=== PATIENT | male | born 1995 | race Two or more races ===

== ENCOUNTER 2024-08-24 14:21 | Emergency (ER) | payer OTHER ==
[~2024-08-24] VITALS: Ht 175.3 cm; Wt 217.7 kg
[2024-08-24 18:29] LABS: BASO % 0.4 % (0.1-1.2); EOS # 0.41 (0.04-0.54); HEMATOCRIT 44.8 % (40.1-51.0); HEMOGLOBIN 13.5 g/dL (13.7-17.5); LYMPH % 23.5 % (19.3-53.1); MEAN CORPUSCULAR HEMOGLOBIN 21.8 pg (25.6-32.2); MONO # 0.89 (0.24-0.82); MONO % 6.5 % (4.7-12.5); NEUT % 66.3 % (34.0-71.1); PLATELET COUNT 338 K/uL (163-369); RED BLOOD COUNT 6.18 M/uL (4.63-6.08); RED CELL DISTRIBUTION WIDTH 17.4 % (11.6-14.4)
[2024-08-24 19:30] LABS: INFLUENZA A AG NEGATIVE (NEGATIVE)
[2024-08-24 19:31] LABS: COVID-19 AG NEGATIVE (NEGATIVE)
[2024-08-24] MEDS ORDERED: ACETAMINOPHEN500 M1 PO (21:02)
[2024-08-24] MEDS ORDERED: AMOX-CLAV 875-1 EACH PO (21:02)
[2024-08-24] MEDS ORDERED: GILTUSS COUGH-118 M1 PO (21:02)
[2024-08-24] MEDS ORDERED: MOMETASONE FURO17 GM NASAL (21:06)
== END 2024-08-24 22:04 | disposition home or self-care (01) ==
LOC: ER 14:21
PROVIDERS: Preventive Medicine Public Health & General Preventive Medicine
DX: J06.9 Acute upper respiratory infection, unspecified (principal); Z20.822 Contact with and (suspected) exposure to COVID-19; Z88.8 Allergy status to other drugs, medicaments and biological substances; Z91.013 Allergy to seafood

== ENCOUNTER 2024-10-25 10:36 | Emergency (ER) | payer OTHER ==
[~2024-10-25] VITALS: Ht 175.3 cm; Wt 181.4 kg
[~2024-10-25 10:36] MED LIST: ACETAMINOPHEN500 M1 PO; AMOX-CLAV 875-1 EACH PO; GILTUSS COUGH-118 M1 PO; MOMETASONE FURO17 GM NASAL
[2024-10-25] MEDS ORDERED: IBUPROFEN800 MG PO (14:02)
[2024-10-25] MEDS ORDERED: PEPCID AC20 MG PO (14:02)
[2024-10-25] MEDS ORDERED: CEFTRIAXONE SODIUM 1,000 MG VIAL IM ONE (14:15)
== END 2024-10-25 14:14 | disposition home or self-care (01) ==
LOC: ER 10:50
DX: K04.7 Periapical abscess without sinus (principal); K08.89 Other specified disorders of teeth and supporting structures; Z88.8 Allergy status to other drugs, medicaments and biological substances; Z91.013 Allergy to seafood

== ENCOUNTER 2025-02-07 17:59 | Emergency (ER) | payer OTHER ==
[~2025-02-07] VITALS: Ht 175.3 cm; Wt 191.4 kg
[~2025-02-07 17:59] MED LIST changes: +IBUPROFEN800 MG PO; +PEPCID AC20 MG PO
[2025-02-07] MEDS ORDERED: METHYLPREDNISOLONE SOD SUCC 125 MG VIAL IV ONE (19:15)
[2025-02-07] MEDS ORDERED: IPRATROPIUM BROMIDE 0.5 MG/2.5 ML AMPUL.NEB IH ONE ×2 (19:15→21:10)
[2025-02-07] MEDS ORDERED: METHYLPREDNISOLONE SOD SUCC 125 MG VIAL ONE (19:52)
[2025-02-07 20:53] LABS: BASO % 0.3 % (0.1-1.2); EOS # 0.35 (0.04-0.54); EOS % 2.6 % (0.7-7.0); LYMPH # 3.31 (1.18-3.74); LYMPH % 24.2 % (19.3-53.1); MEAN PLATELET VOLUME 10.80 fl (9.4-12.4); MONO # 0.63 (0.24-0.82); MONO % 4.6 % (4.7-12.5); NEUT # 9.29 (1.56-6.13); NEUT % 67.8 % (34.0-71.1); RED CELL DISTRIBUTION WIDTH 16.3 % (11.6-14.4)
[2025-02-07 21:04] LABS: COVID-19 AG NEGATIVE (NEGATIVE)
[2025-02-07] MEDS ORDERED: ZITHROMAX500 MG PO (22:16)
[2025-02-07] MEDS ORDERED: IPRATROPIU0.2 MG/1 M IH (22:16)
[2025-02-07] MEDS ORDERED: PEPCID AC20 MG PO (22:17)
[2025-02-07] MEDS ORDERED: TUSSIN DM LIQU118 ML PO (22:17)
[2025-02-07] MEDS ORDERED: BUDESONIDE0.5 MG/2 M IH (22:20)
[2025-02-07] MEDS ORDERED: BENZONATATE200 M1 PO (22:25)
== END 2025-02-07 22:48 | disposition home or self-care (01) ==
LOC: ER 18:00
PROVIDERS: General Practice
DX: J06.9 Acute upper respiratory infection, unspecified (principal); Z20.822 Contact with and (suspected) exposure to COVID-19; Z88.8 Allergy status to other drugs, medicaments and biological substances; Z91.013 Allergy to seafood